=== PATIENT | male | born 1980 | race Two or more races ===

== ENCOUNTER 2016-11-23 12:31 | Emergency (ER) | payer SELFPAY ==
[~2016-11-23] VITALS: Ht 182.9 cm; Wt 90.7 kg
--- NOTE | 2016-11-23 12:37 | NUR ---
PT [facility] TO ER BED 15 ACCOMPANIED BY PD. ALOC. POSSIBLE ETOH/SUBSTANCE ABUSE. HARD TO AROUSE. LT SIDED FACIAL AND LUE EDEMA NOTED. NO OBVIOUS DEFORMITY. GOWNED AND PLACED ON MONITOR. STABLE VITALS NOTED. AWAITING MD SMITH.
[2016-11-23] MEDS ORDERED: IV NS 0.9% 1,000 ML BAG IV ONE ×2 (13:00→17:00)
[2016-11-23 13:24] LABS: BASOPHILS # (AUTO) 0.3 /CMM (0.0-0.2); BASOPHILS % (AUTO) 2.5 % (0.0-2.0); EOSINOPHILS # (AUTO) 0.1 /CMM (0.0-0.7); EOSINOPHILS % (AUTO) 1.2 % (0.0-6.0); HEMATOCRIT 39 % (39-51); HEMOGLOBIN 13.4 g/dL (13.5-17.5); LYMPHOCYTES # (AUTO) 1.4 /CMM (0.8-4.8); LYMPHOCYTES % (AUTO) 11.5 % (20.0-44.0); MEAN CORPUSCULAR HEMOGLOBIN 30 PG (26.0-33.0); MEAN CORPUSCULAR HGB CONC 34 g/dl (31.0-36.0); MEAN CORPUSCULAR VOLUME 88 fL (80-96); MONOCYTES # (AUTO) 0.6 /CMM (0.1-1.30); MONOCYTES % (AUTO) 5.1 % (2.0-12.0); NEUTROPHILS % (AUTO) 79.7 % (43.0-81.0); PLATELET COUNT (AUTO) 299 /CMM (150-450); RDW COEFFICIENT OF VARIATION 13.8 (11.5-15.0); RED BLOOD CELL COUNT(AUTO) 4.45 MIL/uL (4.5-6.0); WHITE BLOOD COUNT (AUTO) 12.4 K/uL (4.3-11.0)
--- NOTE | 2016-11-23 13:34 | NUR ---
PT TO RADIOLOGY FOR HEAD CT SCAN VIA [facility].
[2016-11-23 13:35] LABS: CALCIUM, SERUM 8.3 mg/dL (8.5-10.1); CARBON DIOXIDE 29 mmol/L (21-32); CHLORIDE 104 mmol/L (98-107); CREATININE 0.8 mg/dL (0.6-1.3); GFR 108 mL/min (>60); GLUCOSE 114 mg/dL (74-106); POTASSIUM 3.9 mmol/L (3.5-5.1); SODIUM SERUM 138 mmol/L (136-145); UREA NITROGEN, BLOOD 8 mg/dL (7-18)
[2016-11-23 13:40] LABS: INR 0.92 (0.87-1.13); PROTHROMBIN TIME 9.6 SECS (9.5-12.7)
[2016-11-23 13:41] LABS: ALANINE AMINOTRANSFERASE 82 U/L (12-78); ALKALINE PHOSPHATASE 78 U/L (46-116); ASPARTATE AMINOTRANSFERASE 97 U/L (15-37); BILIRUBIN,DIRECT 0.2 mg/dL (0.0-0.2); BILIRUBIN,TOTAL 0.7 mg/dL (0.2-1.0); TOTAL PROTEIN, SERUM 7.1 g/dL (6.4-8.2)
[2016-11-23 13:42] LABS: ACETAMINOPHEN 0 ug/ml (10-30); ALCOHOL, BLOOD < 3 mg/dL (0-0)
--- NOTE | 2016-11-23 14:05 | NUR ---
UNABLE TO ESTABLISH IVHL. MELVA CHEESE SPRAYER AWARE.
[2016-11-23 15:54] LABS: APPEARANCE,URINE Clear (CLEAR); BILIRUBIN,URINE Negative (NEGATIVE); BLOOD, URINE Moderate Ery/uL (NEGATIVE); COLOR,URINE Yellow (YELLOW); KETONES,URINE Trace (NEGATIVE); LEUKOCYTE ESTERASE ,URINE Negative (NEGATIVE); NITRITE, URINE Negative (NEGATIVE); PH,URINE 5.5 (5.0-8.0); PROTEIN,URINE Negative (NEGATIVE); UGLUCOSE Negative (NEGATIVE); UROBILINOGEN,URINE 0.2 EU/dL (0.2)
--- NOTE | 2016-11-23 16:01 | NUR ---
RADIOLOGY AT BEDSIDE FOR CHEST XRAY.
[2016-11-23 16:04] LABS: RBC,URINE 21-50 /HPF (0-2)
[2016-11-23 16:05] LABS: ADD URINE CULTURE NO; BACTERIA,URINE Few /HPF (None Seen)
[2016-11-23 16:06] LABS: SQUAMOUS EPITHELIAL CELL,UR Few /HPF (None Seen)
[2016-11-23 16:08] LABS: CANNABINOID, URINE NEGATIVE (NEGATIVE); PHENCYCLIDINE SCREEN,URINE NEGATIVE (NEGATIVE)
--- NOTE | 2016-11-23 17:25 | NUR ---
PT. NOT READY FOR CT PULMONARY ANGIO, NO IV LINE YET (1726).
[2016-11-23] MEDS ORDERED: IV SET PRIMARY 1 EA INFUS.SET MC ONE ×2 (17:49→19:11)
[2016-11-23] MEDS ORDERED: IV NS 0.9% 1,000 ML ONE ×2 (17:49→19:11)
[2016-11-23] MEDS ORDERED: NALOXONE HCL 0.4 MG/ML AMPUL IV ONE (18:30)
--- NOTE | 2016-11-23 19:01 | NUR ---
LINE IS STILL NEEDED IN ORDER TO DO PULMONARY CT SCAN.
[2016-11-23] MEDS ORDERED: NALOXONE HCL 0.4 MG/ML AMPUL ONE (19:11)
--- NOTE | 2016-11-23 19:55 | NUR ---
PT AWAKE. PULLED IV OUT AND WANT TO BE DISCHARGE. AMBULATORY W/ STEADY GAIT. D/C IN STABLE CONDITION.
[2016-11-23 19:57] VITALS: BP 136/92
== END 2016-11-23 19:58 | disposition home or self-care (01) ==
LOC: EDBD 12:37 → ER 12:37
DX: F19.10 Other psychoactive substance abuse, uncomplicated (principal); R60.0 Localized edema; F17.210 Nicotine dependence, cigarettes, uncomplicated
CPT/HCPCS: 36415; 70450; 71010; 72125; 80048; 80076; 80305; 80329; 81001; 85025; 85378; 85730; 93970; 93971; 96374; 99285; 99406; A4606; G0480 ×2; J2310; J7030 ×2; L0172; Z7610; 81000-TC; G6039-TC